=== PATIENT | male | born 2000 | race Hispanic/Latino ===

== ENCOUNTER 2019-04-25 20:03 | Emergency (ER) | payer SELFPAY ==
[2019-04-25] MEDS ORDERED: SODIUM CHLORIDE 0.9% 1000 ML 1,000 ML IV ONE (20:41)
--- NOTE | 2019-04-25 20:41 | Emergency Department Report ---
ED Syncope HPI - General Stated Complaint: SYNCOPAL EPISODES Time Seen by Provider: 04/25/19 20:28 - History of Present Illness Initial Comments: 19-year-old male presents to ED following syncopal episode while at a restaurant. Patient states the episode occurred after he had finished eating. He reports feeling dizzy and lightheaded prior to actually passing out. Reports feeling mildly short of breath and feeling as if his heart was racing prior to the episode. Patient denies chest pain or headache prior to passing out, although he does report a headache at this time. He denies any recent illness, including fever, cough, abdominal pain, vomiting, diarrhea. Patient denies any sick contacts or recent travel. He denies any leg pain or swelling. Patient states he has had 2 prior episodes of near syncope, however this is the first time that he has actually lost consciousness. Patient has no medical history, not taking any medications, denies alcohol or drug use. Reports tobacco use. Timing/Prior Episodes: single episode today Precipitating Factors: Positive: lightheadedness, rapid heart beat Loss of Consciousness: brief (seconds) Current Symptoms: headache. denies: chest pain, dizziness ED Review of Systems ROS: Stated complaint: SYNCOPAL EPISODES Other details as noted in HPI Comment: All other systems reviewed and negative Constitutional: denies: chills, fever Respiratory: shortness of breath. denies: cough Cardiovascular: palpitations. denies: chest pain Gastrointestinal: denies: abdominal pain, vomiting, diarrhea Musculoskeletal: other (Denies leg pain or swelling) Neurological: headache. denies: weakness, numbness ED Physical Exam - General General appearance: alert, in no apparent distress - Head Head exam: Present: atraumatic, normocephalic - Eye Eye exam: Present: normal appearance, PERRL, EOMI - ENT ENT exam: Present: mucous membranes moist - Neck Neck exam: Present: normal inspection - Respiratory Respiratory exam: Present: normal lung sounds bilaterally. Absent: respiratory distress - Cardiovascular Cardiovascular Exam: Present: regular rate, normal rhythm - GI/Abdominal GI/Abdominal exam: Present: soft. Absent: distended, tenderness - Extremities Exam Extremities exam: Present: normal inspection. Absent: pedal edema, calf tenderness - Neurological Exam Neurological exam: Present: alert, oriented X3, CN II-XII intact. Absent: motor sensory deficit - Psychiatric Psychiatric exam: Present: normal affect, normal mood - Skin Skin exam: Present: warm, dry, intact, normal color ED Course Vital Signs 04/25/19 04/25/19 04/25/19 20:05 20:10 20:25 Temperature 98 F Pulse Rate 87 86 Respiratory 20 19 Rate Blood Pressure Blood Pressure 105/56 [Left] O2 Sat by Pulse 99 99 99 Oximetry 04/25/19 04/25/19 04/25/19 20:30 20:46 21:00 Temperature Pulse Rate 91 H 93 H 92 H Respiratory 22 15 19 Rate Blood Pressure 111/63 114/69 120/69 Blood Pressure [Left] O2 Sat by Pulse 98 99 Oximetry 04/25/19 04/25/19 04/25/19 21:16 21:30 21:46 Temperature Pulse Rate 104 H 98 H 100 H Respiratory 13 18 12 Rate Blood Pressure 120/69 120/69 120/69 Blood Pressure [Left] O2 Sat by Pulse 98 99 98 Oximetry 04/25/19 04/25/19 22:00 23:02 Temperature 98.0 F Pulse Rate 103 H 83 Respiratory 13 12 Rate Blood Pressure 102/51 Blood Pressure 114/72 [Left] O2 Sat by Pulse 98 99 Oximetry ED Medical Decision Making - Lab Data Result diagrams: 04/25/19 20:39 04/25/19 20:39 - EKG Data -: EKG Interpreted by Me EKG shows normal: sinus rhythm, axis, intervals, QRS complexes, ST-T waves Rate: normal - EKG Data Interpretation: no acute changes - Radiology Data Radiology results: report reviewed, image reviewed - Medical Decision Making 19-year-old male presents the ED following a syncopal episode. Patient found to be slightly orthostatic. IV fluids administered. CT head negative. EKG is essentially normal other than early repolarization. Labs are normal. Patient is at baseline, no neuro deficits present. Urine drug screen is positive for marijuana and cocaine, which could be the cause of patient's syncopal episode. Patient advised to stop all drug use. Will discharge home at this time. Return precautions given. - Differential Diagnosis Arrhythmia, dehydration, drug use Critical care attestation.: If time is entered above; I have spent that time in minutes in the direct care of this critically ill patient, excluding procedure time. ED Disposition Clinical Impression: Syncope, Orthostatic dizziness, Cocaine abuse Disposition: DC-01 TO HOME OR SELFCARE Is pt being admited?: No Condition: Stable Instructions: Syncope (ED), Cocaine Abuse (ED) Referrals: [facility] [Provider Group] - 3-5 Days [facility] [Outside] - 3-5 Days Time of Disposition: 22:48
--- NOTE | 2019-04-25 20:58 | XRay Report ---
CHEST 1 VIEW 8:36 PM INDICATION / CLINICAL INFORMATION: Syncope. COMPARISON: None available. FINDINGS: SUPPORT DEVICES: None. HEART / MEDIASTINUM: The heart size and pulmonary vasculature are normal. The aorta is normal in cheyanne karsten. LUNGS / PLEURA: No significant pulmonary or pleural abnormality. No pneumothorax. ADDITIONAL FINDINGS: No significant additional findings. IMPRESSION: No acute findings. Signer Name: Chiki Bond MD Signed: 04/25/2019 8:53 PM Workstation Name: [id number]
[2019-04-25 21:09] LABS: Basophils % (Auto) 0.3 % (0.0-1.8); Eosinophils # (Auto) 0.2 K/mm3 (0.0-0.4); Eosinophils % (Auto) 1.9 % (0.0-4.3); Hematocrit 42.6 % (35.5-45.6); Hemoglobin 14.6 gm/dl (11.8-15.2); Lymphocytes # (Auto) 1.9 K/mm3 (1.2-5.4); Lymphocytes % (Auto) 23.2 % (13.4-35.0); Mean Corpuscular HGB Conc 34 % (32-34); Mean Corpuscular Volume 96 fl (84-94); Monocytes # (Auto) 0.7 K/mm3 (0.0-0.8); Monocytes % (Auto) 8.9 % (0.0-7.3); Platelet Count 204 K/mm3 (140-440); Red Blood Count 4.44 M/mm3 (3.65-5.03); Red Cell Distribution Width 13.5 % (13.2-15.2)
[2019-04-25 21:20] LABS: INR 1.06 (0.87-1.13); Partial Thromboplastin Time 28.6 Sec. (24.2-36.6)
[2019-04-25 21:33] LABS: BUN/Creatinine Ratio 12; Blood Urea Nitrogen 11 mg/dL (9-20); Calcium 9.4 mg/dL (8.4-10.2); Hemolysis Index 13
--- NOTE | 2019-04-25 21:38 | Cat Scan Report ---
CT HEAD/BRAIN WO CON INDICATION / CLINICAL INFORMATION: Syncope. TECHNIQUE: All CT scans at this location are performed using CT dose reduction for ALARA by means of automated e xposure control. COMPARISON: None available. FINDINGS: The ventricular system is normal in size and configuration. No focal lesion or mass effect is seen. T here is no evidence of intracranial hemorrhage or major vessel occlusion. The calvarium is intact. The visualized paranasal sinuses and mastoid air cells are clear. IMPRESSION:No acute abnormality. Signer Name: Chiki Bond MD Signed: 04/25/2019 9:34 PM Workstation Name: [id number]
[2019-04-25 22:02] LABS: Bacteria,Urine 1+ /HPF (Negative); Bilirubin,Urine NEG (Negative); Blood,Urine NEG (Negative); Color,Urine Yellow (Yellow); Mucus,Urine FEW /HPF; Protein,Urine <15 mg/dL mg/dL (Negative); Urobilinogen,Urine < 2.0 mg/dL (<2.0)
[2019-04-25 22:10] LABS: Amphetamine Screen,Urine PRESUMPTIVE NEGATIVE; Benzodiazepines Screen,Urine PRESUMPTIVE NEGATIVE; Methadone Screen,Urine PRESUMPTIVE NEGATIVE; Opiate Screen,Urine PRESUMPTIVE NEGATIVE
[2019-04-25 22:22] LABS: Cannabinoid Screen,Urine PRESUMPTIVE POSITIVE; Cocaine Screen,Urine PRESUMPTIVE POSITIVE
[2019-04-25 23:03] VITALS: BP 114/72
== END 2019-04-25 23:03 | disposition home or self-care (01) ==
LOC: ED 20:03
DX: R55 Syncope and collapse (principal); F14.10 Cocaine abuse, uncomplicated; Z79.899 Other long term (current) drug therapy
CPT/HCPCS: 36415; 70450; 71045; 80048; 80307; 81001; 84484; 85025; 85379; 85610; 85730; 93005; 93010; 99284; J7030; 80320; G0480